=== PATIENT | male | born 1950 | race Caucasian/White ===

== ENCOUNTER → 2023-05-12 | Outpatient (CLI) | payer MEDICARE, BC, OTHER ==
[2023-05-14 13:07] LABS: PSA TOTAL <0.1 ng/mL (0.0-4.0)
== END ==
LOC: M LAB 10:33
PROVIDERS: ATTEND Urology
DX: Z85.46 Personal history of malignant neoplasm of prostate (principal); R97.20 Elevated prostate specific antigen [PSA]